=== PATIENT | male | born 1995 ===

== ENCOUNTER 2018-05-31 19:02 | Emergency (ER) | payer OTHER ==
[2018-05-31 19:24] VITALS: TEMP 98.6; O2SAT 99
--- NOTE | 2018-05-31 22:32 | ED PDOC ---
HPI: Headache Time Seen by Provider: 05/31/18 21:36 Chief Complaint (Nursing): Abdominal Pain Chief Complaint (Provider): Headache History Per: Patient History/Exam Limitations: no limitations Additional Complaint(s): Pt reports L sided CARNEY X 2 days. States he had subjective fever, vomiting and abdominal pain yesterday. Today noticed rash on face, no pain, no itching. Nausea and abdominal pain have since resolved. Past Medical History Reviewed: Nursing Documentation, Vital Signs Vital Signs: Last Vital Signs Temp 98.6 F 05/31/18 19:22 Pulse 66 05/31/18 19:22 Resp 18 05/31/18 19:22 BP 168/96 H 05/31/18 19:22 Pulse Ox 99 05/31/18 19:22 - Medical History PMH: No Chronic Diseases - Family History Family History: States: Unknown Family Hx - Social History Current smoker - smoking cessation education provided: No Alcohol: None - Home Medications Home Medications: Ambulatory Orders Medication Instructions Recorded Ibuprofen [Motrin] 600 mg PO Q6H PRN #20 tab 06/01/18 - Allergies Allergies/Adverse Reactions: Allergies Allergy/AdvReac Type Severity Reaction Status Date / Time No Known Allergies Allergy Verified 05/31/18 19:22 Review of Systems Eyes: Negative for: Vision Change Respiratory: Negative for: Cough, Shortness of Breath Gastrointestinal: Negative for: Nausea, Vomiting, Abdominal Pain, Diarrhea Skin: Positive for: Rash. Negative for: Lesions Neurological: Positive for: Headache. Negative for: Weakness, Numbness, Incoordination, Change in Speech, Confusion, Altered Mental Status, Dizziness Physical Exam - Reviewed Nursing Documentation Reviewed: Yes Vital Signs Reviewed: Yes - Physical Exam Appears: Positive for: Well, No Acute Distress Head Exam: Positive for: ATRAUMATIC, NORMAL INSPECTION Skin: Positive for: Normal Color (Petechiae bilateral face), Warm, Dry Eye Exam: Positive for: Normal appearance, EOMI, PERRL Cardiovascular/Chest: Positive for: Regular Rate, Rhythm Respiratory: Positive for: Normal Breath Sounds Gastrointestinal/Abdominal: Positive for: Normal Exam, Bowel Sounds, Soft. Ne gative for: Tenderness, Guarding, Rebound Extremity: Positive for: Normal ROM Neurological/Psych: Positive for: Awake, Alert, Oriented, Motor/Sensory Deficits - ECG O2 Sat by Pulse Oximetry: 99 Medical Decision Making Medical Decision Makin CT Head FINDINGS: BRAIN No acute intraparenchymal hemorrhage. No mass lesion. No CT evidence for acute territorial infarct. No midline shift or extra-axial collections. VENTRICLES: No hydrocephalus. ORBITS: The orbits are unremarkable. SINUSES AND MASTOIDS: The paranasal sinuses and mastoid air cells are clear. BONES: No fracture. SOFT TISSUES: Unremarkable. IMPRESSION: No acute intracranial abnormality. [address] Charles, pending urine dips and disposition. Disposition - Clinical Impression Clinical Impression: Headache - Patient ED Disposition Is Patient to be Admitted: Transfer of Care - Disposition Referrals: [facility] [Outside] Disposition: Transfer of Care Disposition Time: 00:00 Condition: IMPROVED Prescriptions: Ibuprofen [Motrin] 600 mg PO Q6H PRN #20 tab PRN Reason: Pain, Moderate (4-7) Instructions: Headache, Adult Forms: [facility] (Marshallese), [facility] ED School/Work Excuse Print Language: GREEK Patient Signed Over To: Torrey Charles
--- NOTE | 2018-06-01 00:23 | ED PDOC ---
- ECG O2 Sat by Pulse Oximetry: 99 (RA) Pulse Ox Interpretation: Normal Medical Decision Making Medical Decision Makin Patient endorsed to me by Dr. Solis, pending urine dip and disposition. 0009 U-dip negative. ScribeAttestation: Documented byTisha Buckner, acting as a scribe for Torrey Charles MD. Provider ScribeAttestation: All medical record entries made by the Scribe were at my direction and personally dictated by me. I have reviewed the chart and agree that the record accurately reflects my personal performance of the history, physical exam, medical decision making, and the department course for this patient. I have also personally directed, reviewed, and agree with the discharge instructions and disposition. Disposition - Clinical Impression Clinical Impression: Headache - POA Present On Arrival: None - Disposition Referrals: [facility] [Outside] Disposition: Routine/Home Disposition Time: 00:15 Condition: IMPROVED Prescriptions: Ibuprofen [Motrin] 600 mg PO Q6H PRN #20 tab PRN Reason: Pain, Moderate (4-7) Instructions: Headache, Adult Forms: [employer] (Sami), [facility] ED School/Work Excuse Print Language: ARABIC
[2018-06-01 00:25] VITALS: BP 131/84; PULSE 74; RESP 16
--- NOTE | 2018-06-01 10:51 | CT ---
Date of service: 05/31/2018 PROCEDURE: CT HEAD WITHOUT CONTRAST. HISTORY: Left-sided headache COMPARISON: None available. TECHNIQUE: Axial computed tomography images were obtained through the head/brain without intravenous contrast. Radiation dose: Total exam DLP = 766.07 mGy-cm. This CT exam was performed using one or more of the following dose reduction techniques: Automated exposure control, adjustment of the mA and/or kV according to patient size, and/or use of iterative reconstruction technique. FINDINGS: HEMORRHAGE: No intracranial hemorrhage. BRAIN: Torres-white matter differentiation is preserved. There is no mass, mass effect or abnormal extra-axial fluid collection. There is no territorial infarction. The midline sagittal structures are normal. VENTRICLES: The ventricles are normal in size, shape and configuration. CALVARIUM: There is no calvarial fracture or extracranial soft tissue swelling. PARANASAL SINUSES: Predominantly clear. MASTOID AIR CELLS: Predominantly clear. OTHER FINDINGS: None. IMPRESSION: No acute intracranial abnormality. A preliminary report was provided by [facility].
== END 2018-06-01 00:25 | disposition home or self-care (01) ==
LOC: H.ER 19:02
DX: R51 Headache (principal)

== ENCOUNTER 2018-06-03 19:30 | Emergency (ER) | payer OTHER ==
[2018-06-03 19:57] VITALS: TEMP 98.3
[2018-06-03] MEDS ORDERED: Albuterol 0.083% Inhal Sol (2.5 mg/3 mL) UD INH STA (20:16)
--- NOTE | 2018-06-03 20:19 | ED PDOC ---
HPI: General Adult Time Seen by Provider: 06/03/18 20:17 Chief Complaint (Nursing): Chest Pain Chief Complaint (Provider): sob History Per: Patient (22 y/o male h/o deviated nasal septum here with 4 days of difficulty of breathing from nose and through chest. Denies any nasal discharge. No chest pain/fevers/cough.) Past Medical History Reviewed: Historical Data, Nursing Documentation, Vital Signs Vital Signs: Last Vital Signs Temp 98.3 F 06/03/18 19:53 Pulse 82 06/03/18 19:53 Resp 16 06/03/18 19:53 BP 147/97 H 06/03/18 19:53 Pulse Ox 100 06/03/18 19:53 - Family History Family History: States: Unknown Family Hx - Home Medications Home Medications: Ambulatory Orders Medication Instructions Recorded Ibuprofen [Motrin] 600 mg PO Q6H PRN #20 tab 06/01/18 Pseudoephedrine [Sudafed Tab] 60 mg PO Q6 PRN #24 tab 06/03/18 - Allergies Allergies/Adverse Reactions: Allergies Allergy/AdvReac Type Severity Reaction Status Date / Time No Known Allergies Allergy Verified 06/03/18 19:53 Review of Systems ROS Statement: Except As Marked, All Systems Reviewed And Found Negative Respiratory: Positive for: Shortness of Breath Physical Exam - Reviewed Nursing Documentation Reviewed: Yes Vital Signs Reviewed: Yes - Physical Exam Appears: Positive for: Well, Non-toxic, No Acute Distress Head Exam: Positive for: ATRAUMATIC, NORMAL INSPECTION, NORMOCEPHALIC Skin: Positive for: Normal Color, Warm, DRY Eye Exam: Positive for: EOMI, Normal appearance, PERRL ENT: Positive for: Normal ENT Inspection Neck: Positive for: Normal, Painless ROM Cardiovascular/Chest: Positive for: Regular Rate, Rhythm Respiratory: Positive for: CNT, Normal Breath Sounds Gastrointestinal/Abdominal: Positive for: Normal Exam, Soft Back: Positive for: Normal Inspection Extremity: Positive for: Normal ROM Neurological/Psych: Positive for: Awake, Alert, Normal Tone - ECG ECG Rhythm: Positive for: Sinus Rhythm (72 bpm; no ectopy no acute changes) O2 Sat by Pulse Oximetry: 100 - Progress ED Course And Treament: albuterol neb x 1 dose cxr: nad Patient states no change in difficulty breathing after treatment and notes difficulty breathing through nose. Disposition - Clinical Impression Clinical Impression: Nasal congestion - Patient ED Disposition Is Patient to be Admitted: No - Disposition Referrals: Jose Manuel Weston III, MD [Staff Provider] - Disposition: Routine/Home Disposition Time: 21:33 Condition: FAIR Prescriptions: Pseudoephedrine [Sudafed Tab] 60 mg PO Q6 PRN #24 tab PRN Reason: Nasal Congestion Instructions: Sinusitis, Adult (DC) Print Language: POLISH
[2018-06-04 06:46] VITALS: BP 137/72; PULSE 90; RESP 18; O2SAT 99
--- NOTE | 2018-06-04 09:17 | CARD ---
APPROVED REPORT Date of service: 06/03/2018 EKG Measurement Heart [id number] <Conclusion> Normal sinus rhythm Normal ECG
--- NOTE | 2018-06-04 09:50 | RAD ---
Date of service: 06/03/2018 HISTORY: sob COMPARISON: No prior. TECHNIQUE: Chest PA and lateral views FINDINGS: LUNGS: No active pulmonary disease. PLEURA: No significant pleural effusion identified. No pneumothorax apparent. CARDIOVASCULAR: No aortic atherosclerotic calcification present. Normal cardiac size. No pulmonary vascular congestion. OSSEOUS STRUCTURES: No significant abnormalities. VISUALIZED UPPER ABDOMEN: Normal. OTHER FINDINGS: None. IMPRESSION: No acute cardiopulmonary disease appreciated.
== END 2018-06-03 21:40 | disposition home or self-care (01) ==
LOC: H.ER 19:30
DX: R09.81 Nasal congestion (principal); J34.2 Deviated nasal septum

== ENCOUNTER 2018-06-12 02:05 | Emergency (ER) | payer OTHER ==
[2018-06-12 02:18] VITALS: BP 143/71; TEMP 98.9; O2SAT 100
[2018-06-12] MEDS ORDERED: Albuterol 0.083% Inhal Sol (2.5 mg/3 mL) UD INH STA (02:53)
[2018-06-12] MEDS ORDERED: Sodium Chloride 0.9% 1,000 ML IV SCH (03:00)
[2018-06-12 03:14] LABS: URINE BILIRUBIN NEGATIVE (NEGATIVE); URINE BLOOD NEGATIVE (NEGATIVE); URINE CLARITY CLEAR (Clear); URINE COLOR AMBER (YELLOW); URINE GLUCOSE (UA) 50 mg/dL (NEGATIVE); URINE LEUKOCYTE ESTERASE NEG Leu/uL (Negative); URINE PROTEIN NEGATIVE (NEGATIVE); URINE UROBILINOGEN 0.2-1.0 mg/dL (0.2-1.0)
[2018-06-12 03:15] LABS: BASO % 0.3 % (0.0-2.0); EOS # 0.1 K/uL (0.0-0.7); EOS % 0.7 % (0.0-4.0); HEMOGLOBIN 15.6 g/dL (12.0-18.0); LYMPH # 2.4 K/uL (1.0-4.3); LYMPH % 24.1 % (20.0-40.0); MEAN CELL VOLUME 86.6 fl (80.0-94.0); MEAN CORPUSCULAR HEMOGLOBIN 29.3 pg (27.0-31.0); MEAN CORPUSCULAR HGB CONC 33.8 g/dL (33.0-37.0); MEAN PLATELET VOLUME 7.6 fl (7.2-11.7); MONO % 10.1 % (0.0-10.0); NEUT # 6.6 K/uL (1.8-7.0); NEUT % 64.8 % (50.0-75.0); RBC 5.32 Mil/uL (4.40-5.90); RED CELL DISTRIBUTION WIDTH 12.8 % (11.5-14.5); WHITE BLOOD COUNT 10.1 K/uL (4.8-10.8)
[2018-06-12 03:21] LABS: ALB/GLOB RATIO 1.5 (1.0-2.1); ALBUMIN 5.2 g/dL (3.5-5.0); ALT/SGPT 46 U/L (21-72); AST/SGOT 42 U/L (17-59); BLOOD UREA NITROGEN 16 mg/dl (9-20); CALCIUM 9.8 mg/dL (8.4-10.2); GFR NON-AFRICAN AMERICAN > 60
--- NOTE | 2018-06-12 04:38 | ED PDOC ---
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 This is the 3rd visit to the ED within the last 2 weeks. Patient was seen here 2 weeks ago for difficulty breathing due to flu-like symptoms and congestion. He reports taking Sudafed this morning. He states his visit prior to that was for headache, rash and abdominal pain and he is not sure if they are related. Patient complains of right arm and leg cramping and tingling starting tonight. He states he has been stressed at school but has no history of anxiety. Mother states on the way here, patient had an anxiety attack and wanted to get out of the car and get air. Patient denies recent travel, recent surgery, calf pain, legs swelling, hormone use, history of blood clots or cardiac problems. Pt denies any injury, trauma, heavy lifting. He reports he was prescribed a medication in [facility] a year ago for a parasite and is supposed to take it yearly, so took it recently. PMD: None provided - Risk Factors PE Risk Factors: Neg: Extremity Immobilization/Fx, Decreased Mobilty /Activity, Recent Major Surgery, Recent Hospitalization, Active Cancer, Previous DVT, Previous PE, CHF, Venous Stasis, Estrogen Usage, , Post-, Recent Major Trauma Past Medical History Reviewed: Historical Data, Nursing Documentation, Vital Signs Vital Signs: Last Vital Signs Temp 98.9 F 06/12/18 02:15 Pulse 114 H 06/12/18 02:15 Resp 19 06/12/18 03:07 BP 143/71 06/12/18 02:15 Pulse Ox 100 06/12/18 03:07 - Medical History PMH: No Chronic Diseases Denies: Asthma, Diabetes, HTN - Surgical History Surgical History: No Surg Hx - Family History Family History: States: Unknown Family Hx - Social History Current smoker - smoking cessation education provided: No Alcohol: None Drugs: Denies - Home Medications Home Medications: Ambulatory Orders Medication Instructions Recorded Ibuprofen [Motrin] 600 mg PO Q6H PRN #20 tab 06/01/18 Pseudoephedrine [Sudafed Tab] 60 mg PO Q6 PRN #24 tab 06/03/18 - Allergies Allergies/Adverse Reactions: Allergies Allergy/AdvReac Type Severity Reaction Status Date / Time No Known Allergies Allergy Verified 06/12/18 02:18 Wells Criteria for PE - Wells Criteria for Pulmonary Embolism Clinical Signs and Symptoms of DVT: No P.E is #1 Diagnosis, or Equally Likely: No Heart Rate >100: Yes Immobilization at least 3 days;Surgery previous 4 weeks: No Previous, objectively diagnosed PE or DVT: No Hemoptysis: No Malignancy w/treatment within 6 months, or palliative: No Total Score: 1.5 Review of Systems ROS Statement: Except As Marked, All Systems Reviewed And Found Negative Cardiovascular: Positive for: Chest Pain (tightness) Respiratory: Positive for: Shortness of Breath Musculoskeletal: Negative for: Other (Calf pain or leg swelling ) Neurological: Positive for: Numbness (of right arm and leg), Other (Tingling of right arm and leg) Physical Exam - Reviewed Nursing Documentation Reviewed: Yes - Physical Exam Comments: GENERALIZED APPEARANCE:Patient is awake, alert, oriented x3 in no acute distress. Well appearing, speaking full sentence with taking deep breaths at times. SKIN: Warm, dry; (-) cyanosis. EYES: (-) conjunctival pallor. ENMT: Mucous membranes moist. NECK: (-) tenderness, (-) stiffness, (-) lymphadenopathy, (-) JVD, (-) crepitus CHEST AND RESPIRATORY: (-) rash, (+) left sided reproducible anterior chest wall tenderness (-) crepitus Lungs: (-) rales, (-) rhonchi, (-) wheezes, (-) rub; (+) decreased breath sounds throughout (-) accessory muscle use HEART AND CARDIOVASCULAR: (-) irregularity; (-) murmur, (-) gallop, (-) rub. ABDOMEN AND GI: Soft; (-) distention, (-) tenderness, (-) palpable pulsatile mass. EXTREMITIES: (-) deformity; (-) edema to legs, (-) calf tenderness. (+) distal pulses. NEURO AND PSYCH: Mental status as above. Cranial nerves grossly intact; strength symmetric. - Laboratory Results Result Diagrams: 06/12/18 03:00 06/12/18 03:00 Lab Results: D-Dimer, Quantitative < 200 ng/mlDDU (0-230) 06/12/18 03:39 Total Bilirubin 0.7 mg/dl (0.2-1.3) 06/12/18 03:00 AST 42 U/L (17-59) 06/12/18 03:00 ALT 46 U/L (21-72) 06/12/18 03:00 Alkaline Phosphatase 108 U/L (38-126) 06/12/18 03:00 Total Protein 8.8 G/DL (6.3-8.2) H 06/12/18 03:00 Albumin 5.2 g/dL (3.5-5.0) H 06/12/18 03:00 Globulin 3.6 gm/dL (2.2-3.9) 06/12/18 03:00 Albumin/Globulin Ratio 1.5 (1.0-2.1) 06/12/18 03:00 Urine Color Kendal (YELLOW) 06/12/18 03:00 Urine Clarity Clear (Clear) 06/12/18 03:00 Urine pH 7.0 (5.0-8.0) 06/12/18 03:[address] 1.008 (1.003-1.030) 06/12/18 03:00 Urine Protein Negative mg/dL (NEGATIVE) 06/12/18 03:00 Urine Glucose (UA) 50 mg/dL (NEGATIVE) 06/12/18 03:00 Urine Ketones Negative mg/dL (NEGATIVE) 06/12/18 03:00 Urine Blood Negative (NEGATIVE) 06/12/18 03:00 Urine Nitrate Negative (NEGATIVE) 06/12/18 03:00 Urine Bilirubin Negative (NEGATIVE) 06/12/18 03:00 Urine Urobilinogen 0.2-1.0 mg/dL (0.2-1.0) 06/12/18 03:00 Ur Leukocyte Esterase Neg Alex/uL (Negative) 06/12/18 03:00 - ECG O2 Sat by Pulse Oximetry: 100 (RA) Pulse Ox Interpretation: Normal Medical Decision Making Medical Decision Making: Time: 252 initial eval: cardiac vs pulmonary vs musculoskeletal vs anxiety A/P: Workup -- CBC, CMP -- CXR -- EKG -- IVF -- Toradol IV -- Albuterol neb --Discussed with Dr. Schaefer, will do D-Dimer due to tachycardia -- reeval EKG sinus tachycardia 110, no acute ST/T change 414 CXR reviewed by me - no infiltrates, no cardiomegaly, no active disease, no changes compared to 06/03/[address] Schaefer, elevated glucose and urine glucose, d-dimer <200 on re eval pt reports feeling better, pulse in in 80s, lungs are clear with good breath sounds through out, no wheezing, rhonchi, rales, pt with continued mild left sided anterior tenderness, pt with non pleuritic chest pain, +reproducible, pt is stressed, possible anxiety vs musculoskeletal, d-dimer negative, no other concerns for PE Discussed results, diagnosis, treatment, strict return precautions and f/u with pt who is understanding, in agreement and stable for dc (biodiesel technology manager provided translation) Scribe Attestation: Documented by Tisha Buckner, acting as a scribe for JASPREET Pro. Provider Scribe Attestation: All medical record entries made by the Scribe were at my direction and personally dictated by me. I have reviewed the chart and agree that the record accurately reflects my personal performance of the history, physical exam, medical decision making, and the department course for this patient. I have also personally directed, reviewed, and agree with the discharge instructions and disposition. Disposition - Clinical Impression Clinical Impression: Chest pain, unspecified, Hyperglycemia - Patient ED Disposition Is Patient to be Admitted: No Counseled Patient/Family Regarding: Studies Performed, Diagnosis, Need For Followup - Disposition Referrals: [facility] [Outside] Disposition: Routine/Home Disposition Time: 04:50 Condition: IMPROVED Additional Instructions: Pamela por dejarnos cuidar de ti hoy. Usted fue tratado por dolor en el pecho no especificado, azcar en la virgilio alto. La atencin mdica de emergencia que recibi hoy se dirigi a deepali sntomas agudos. Es muy importante hacer un seguimiento con la clnica miriam se indica. Si le recetaron algn medicamento, llnelo y tmelo segn las indicaciones. Los sntomas pueden tardar varios cowan en resolverse. Alternar entre Tylenol e Ibuprofeno para el dolor. Aplicar hielo para la hinchazn. Regrese al Departamento de Emergencias si deepali sntomas empeoran, no mejoran o si tiene otros problemas. Comunquese con cramer mdico dentro de 2 cowna para tressa nueva evaluacin y lin un seguimiento o llame a nehemias de los mdicos / clnicas a los que blackmon sido referido y que figuran en el formulario de Informacin de visita al paciente que se incluye en cramer paquete de cheryl. Lleve todos los documentos que recibi al momento del cheryl junto con los medicamentos que est tomando para cramer visita de seguimiento. Nuestro tratamiento no puede reemplazar la atencin mdica continua por parte de un proveedor de atencin primaria (PCP) fuera del departamento de emergencias. Instructions: Hyperglycemia, Adult, Chest Pain Forms: [facility] (Grenadian) Print Language: YORUBA - POA Present On Arrival: None
[2018-06-12 04:48] VITALS: PULSE 82; RESP 18
--- NOTE | 2018-06-12 11:32 | RAD ---
Date of service: 06/12/2018 HISTORY: chest pain, sob COMPARISON: Chest radiograph dated 06/03/2018 TECHNIQUE: Chest PA and lateral views FINDINGS: LUNGS: No active pulmonary disease. PLEURA: No significant pleural effusion identified. No pneumothorax apparent. CARDIOVASCULAR: No aortic atherosclerotic calcification present. Normal cardiac size. No pulmonary vascular congestion. OSSEOUS STRUCTURES: No significant abnormalities. VISUALIZED UPPER ABDOMEN: Normal. OTHER FINDINGS: None. IMPRESSION: No active disease.
--- NOTE | 2018-06-12 20:32 | CARD ---
APPROVED REPORT Date of service: 06/12/2018 EKG Measurement Heart [id number] <Conclusion> Sinus tachycardia Otherwise normal ECG
== END 2018-06-12 05:23 | disposition home or self-care (01) ==
LOC: H.ER 02:05
DX: R07.9 Chest pain, unspecified (principal); E11.9 Type 2 diabetes mellitus without complications; J44.9 Chronic obstructive pulmonary disease, unspecified
CPT/HCPCS: 71046; 80053; 81003; 85025; 85378; 93005; 96361; 96374; 99283; J1885; J7030

== ENCOUNTER 2018-06-23 02:29 | Emergency (ER) | payer OTHER ==
[2018-06-23 02:47] VITALS: BP 157/86; TEMP 97.8
--- NOTE | 2018-06-23 03:01 | ED PDOC ---
HPI: Hypertension/Hypotension Time Seen by Provider: 06/23/18 02:43 Chief Complaint (Provider): palpitations History Per: Patient History/Exam Limitations: no limitations Onset/Duration Of Symptoms: Hrs (1) Current Symptoms Are (Timing): Still Present Associated Symptoms: Dyspnea Additional Complaint(s): 22 y/o male presents for evaluation of palpitations x 1 hour. Patient states he woke up from his sleep and felt his heart racing and felt that he had to keep taking deep breaths to get air in. Patient reports similar symptoms recently, was evaluated in ED for same. Patient admits to using Phenlyephrine nasal spray 7 times daily for nasal congestion. Patient denies headache, dizziness, extremity numbness/weakness, chest pain, leg pain/swelling. Past Medical History Reviewed: Historical Data, Nursing Documentation, Vital Signs Vital Signs: Last Vital Signs Temp 97.8 F 06/23/18 02:41 Pulse 102 H 06/23/18 02:41 Resp 22 06/23/18 02:41 BP 157/86 H 06/23/18 02:41 Pulse Ox 100 06/23/18 02:41 - Medical History PMH: No Chronic Diseases Denies: Asthma, Diabetes, HTN - Surgical History Surgical History: No Surg Hx - Family History Family History: States: Unknown Family Hx - Home Medications Home Medications: Ambulatory Orders Medication Instructions Recorded Ibuprofen [Motrin] 600 mg PO Q6H PRN #20 tab 06/01/18 Pseudoephedrine [Sudafed Tab] 60 mg PO Q6 PRN #24 tab 06/03/18 Sodium Chloride [[facility] 1 inh NS Q4 PRN #1 bottle 06/23/18 Pharmacy Saline Nasal [place] 44 ] - Allergies Allergies/Adverse Reactions: Allergies Allergy/AdvReac Type Severity Reaction Status Date / Time No Known Allergies Allergy Verified 06/23/18 02:55 Review of Systems ROS Statement: Except As Marked, All Systems Reviewed And Found Negative Cardiovascular: Positive for: Palpitations Respiratory: Positive for: Shortness of Breath Physical Exam - Reviewed Nursing Documentation Reviewed: Yes Vital Signs Reviewed: Yes - Physical Exam Appears: Positive for: Well, Non-toxic, Uncomfortable (anxious-appearing) Head Exam: Positive for: ATRAUMATIC, NORMAL INSPECTION, NORMOCEPHALIC Skin: Positive for: Normal Color Eye Exam: Positive for: Normal appearance ENT: Positive for: Normal ENT Inspection Cardiovascular/Chest: Positive for: Regular Rate, Rhythm Respiratory: Positive for: Normal Breath Sounds Gastrointestinal/Abdominal: Positive for: Normal Exam Back: Positive for: Normal Inspection Extremity: Positive for: Normal ROM Neurological/Psych: Positive for: Awake, Alert, Oriented (x3) - ECG ECG: Positive for: Viewed By Me (reviewed by ED attending) ECG Rhythm: Positive for: Sinus Rhythm O2 Sat by Pulse Oximetry: 100 - Progress ED Course And Treament: Patient with multiple ED visits this month with similar complaints; had full work up on 06/12/18 crisis eval ordered Patient evaluated by criminal justice social worker and cleared for discharge as per Dr. Eller Patient does not wish to have outpatient follow up. States he feels his panic- like behavior is due to his nasal congestion and not being able to breathe properly Patient was advised to discontinue Phenlyephrine, rx saline spray provided Advised follow up PMD within 2-3 days. Humidifier Return precautions given Disposition - Clinical Impression Clinical Impression: Palpitations, Nasal congestion - Patient ED Disposition Is Patient to be Admitted: No Counseled Patient/Family Regarding: Studies Performed, Diagnosis, Need For Followup, Rx Given - Disposition Referrals: [facility] [Outside] Disposition: Routine/Home Disposition Time: 03:19 Condition: IMPROVED Prescriptions: Sodium Chloride [[facility] Saline Nasal [place] 44 ] 1 inh NS Q4 PRN #1 bottle PRN Reason: nasal congestion Instructions: Palpitations Print Language: ITALIAN
[2018-06-23 04:05] VITALS: PULSE 84; RESP 18; O2SAT 98
--- NOTE | 2018-06-23 08:57 | CARD ---
APPROVED REPORT Date of service: 06/23/2018 EKG Measurement Heart [id number] <Conclusion> Normal sinus rhythm Normal ECG
== END 2018-06-23 03:40 | disposition home or self-care (01) ==
LOC: H.ER 02:29
DX: R00.2 Palpitations (principal); I10 Essential (primary) hypertension

== ENCOUNTER 2018-06-28 00:12 | Emergency (ER) | payer OTHER ==
[2018-06-28 00:32] VITALS: TEMP 98.3
[2018-06-28 02:23] VITALS: O2SAT 100
--- NOTE | 2018-06-28 03:09 | ED PDOC ---
HPI: SOB/CHF/COPD Time Seen by Provider: 06/28/18 00:44 Chief Complaint (Nursing): Shortness Of Breath Chief Complaint (Provider): Shortness Of Breath History Per: Patient History/Exam Limitations: no limitations Onset/Duration Of Symptoms: Other (2 weeks) Additional Complaint(s): 22 y/o male presents to the ED complaining of shortness of breath for the last 2 weeks. Patient seen in ED multiple times in last 2 weeks for recurrent shortness of breath with palpitations. He reports he was evaluated multiple time and has had worked up done which came out negative. Most recent visit was with crisis and referral for follow up. Patient denies homicidal/suicidal ideations or auditory/visual hallucinations. PMD: none Past Medical History Reviewed: Historical Data, Nursing Documentation, Vital Signs Vital Signs: Last Vital Signs Temp 98.3 F 06/28/18 00:30 Pulse 73 06/28/18 00:30 Resp 16 06/28/18 01:08 BP 129/82 06/28/18 00:30 Pulse Ox 100 06/28/18 01:08 - Medical History PMH: Denies: Asthma, Diabetes, Hepatitis, HIV, HTN, Chronic Kidney Disease, Seizures, Sexually Transmitted Disease - Family History Family History: States: Unknown Family Hx - Home Medications Home Medications: Ambulatory Orders Medication Instructions Recorded Ibuprofen [Motrin] 600 mg PO Q6H PRN #20 tab 06/01/18 Pseudoephedrine [Sudafed Tab] 60 mg PO Q6 PRN #24 tab 06/03/18 Sodium Chloride [[facility] 1 inh NS Q4 PRN #1 bottle 06/23/18 Pharmacy [facility] [place] [facility] ] - Allergies Allergies/Adverse Reactions: Allergies Allergy/AdvReac Type Severity Reaction Status Date / Time No Known Allergies Allergy Verified 06/23/18 02:55 Review of Systems ROS Statement: Except As Marked, All Systems Reviewed And Found Negative Respiratory: Positive for: Shortness of Breath (with palpation) Psych: Negative for: Suicidal ideation Physical Exam - Reviewed Nursing Documentation Reviewed: Yes Vital Signs Reviewed: Yes - Physical Exam Appears: Positive for: Well, Non-toxic, No Acute Distress Head Exam: Positive for: ATRAUMATIC, NORMAL INSPECTION, NORMOCEPHALIC Skin: Positive for: Normal Color, Warm, Dry Eye Exam: Positive for: EOMI, Normal appearance, PERRL ENT: Positive for: Normal ENT Inspection Neck: Positive for: Normal, Painless ROM, Supple Cardiovascular/Chest: Positive for: Regular Rate, Rhythm. Negative for: Murmur Respiratory: Positive for: Normal Breath Sounds. Negative for: Wheezing Gastrointestinal/Abdominal: Positive for: Normal Exam, Soft. Negative for: Tenderness Back: Positive for: Normal Inspection. Negative for: L CVA Tenderness, R CVA Tenderness Extremity: Positive for: Normal ROM Neurological/Psych: Positive for: Awake, Alert, Normal Tone, Oriented (x3). Negative for: Motor/Sensory Deficits - ECG O2 Sat by Pulse Oximetry: 100 Medical Decision Making Medical Decision Making: Time: 46 Initial Impression: 22 year old male with recurrent shortness of breath and normal physical exam Initial Plan: -EKG -Crisis evaluation 0346: Patient evaluated by crisis, and is stable for discharge. Diagnosis: Anxiety. Scribe Attestation: Documented by Fanny Acevedo, acting as a scribe for Moses Chao. Provider Scribe Attestation: All medical record entries made by the Scribe were at my direction and personally dictated by me. I have reviewed the chart and agree that the record accurately reflects my personal performance of the history, physical exam, medical decision making, and the department course for this patient. I have also personally directed, reviewed, and agree with the discharge instructions and disposition. Disposition - Clinical Impression Clinical Impression: Nasal congestion, Anxiety - Disposition Referrals: Ever Brock MD [Staff Provider] - Disposition Time: 03:45 Condition: IMPROVED Instructions: Anxiety, Adult (DC) Forms: [employer] (Uzbek) Print Language: ROMANSH
[2018-06-28 05:26] VITALS: BP 134/73; PULSE 68; RESP 18
--- NOTE | 2018-06-28 10:12 | CARD ---
APPROVED REPORT Date of service: 06/28/2018 EKG Measurement Heart [id number] <Conclusion> Normal sinus rhythm with sinus arrhythmia Normal ECG
== END 2018-06-28 03:49 | disposition home or self-care (01) ==
LOC: H.ER 00:12
DX: R09.81 Nasal congestion (principal); F41.9 Anxiety disorder, unspecified; J44.9 Chronic obstructive pulmonary disease, unspecified